=== PATIENT | female | born 1955 | race Caucasian/White ===

== ENCOUNTER → 2023-01-01 | Outpatient (CLI) | payer MEDICARE, OTHER ==
--- NOTE | 2023-01-02 10:05 | PE ---
EXAMINATION TYPE: PET CT fusion skull to thigh DATE OF EXAM: 01/01/2023 CLINICAL INDICATION:Female, 67 years old with history of R91.1 nodule; TECHNIQUE: Following the intravenous administration of 13.0 mCi of F-18 FDG, whole body images are performed from the skull base to the midthigh. Images are reviewed on the computer in the coronal, a xial, and sagittal planes. Reconstructed rotating images are created on independent workstation and reviewed on the computer. A non-contrast CT is performed in conjunction with the PET scan. Glucose level 87 mg/dL COMPARISON: CT None, PET/CT None, FINDINGS: Mediastinal SUV mean is 1.6. Hepatic parenchyma SUV mean is 2.1. SKULL BASE AND NECK: Mild diffuse uptake within the soft tissues around the mouth and within the mandible max SUV 7.6. CHEST, MEDIASTINUM, AND HILAR REGION: Right lower lobe pulmonary nodule measuring 10 mm Max SUV 0.4 ABDOMEN AND PELVIS: No suspicious radiotracer activity. OSSEOUS STRUCTURES: No suspicious radiotracer activity. OTHER CT: Atherosclerosis at the carotid bifurcations) left. Coronary artery calcifications. The hear t is mildly enlarged for size. Scattered colonic diverticula. Thickened endometrium suggested measur ing up to 17 mm. IMPRESSION: 1. Right lower lobe superior segment pulmonary nodule measuring 10 mm with FDG levels below backgrou nd levels. Findings favor granulomatous process. Surveillance with CT imaging is recommended. 2. Abnormal uptake around the mouth and mandible. Clinical correlation advised. Correlate for infect ious/inflammatory process. 3. Abnormally Thickened endometrium for patient's age further evaluation with pelvic ultrasound is r ecommended. There is no increased FDG activity present but should still be further evaluated.
== END | disposition home or self-care (01) ==
LOC: RADPETMAIN 13:51
PROVIDERS: ATTEND Family Medicine
DX: R91.1 Solitary pulmonary nodule (principal); R93.3 Abnormal findings on diagnostic imaging of other parts of digestive tract; R93.89 Abnormal findings on diagnostic imaging of other specified body structures
CPT/HCPCS: 78815; A9552